=== PATIENT | male | born 1965 | race Caucasian/White ===

== ENCOUNTER 2017-04-26 17:15 | Emergency (ER) | payer SELFPAY ==
[2017-04-26 17:15] VITALS: BP 121/73; PULSE 72; RESP 14; TEMP 97.3; O2SAT 98
== END 2017-04-26 17:56 | disposition left against medical advice (07) ==
LOC: NED 17:15
DX: R07.9 Chest pain, unspecified (principal)
CPT/HCPCS: 99281